=== PATIENT | male | born 1985 | race Caucasian/White ===

== ENCOUNTER 2016-07-27 23:29 | Emergency (ER) | payer OTHER ==
--- NOTE | 2016-07-27 23:43 | PDOC ---
History of Present Illness <Jacob Grijalva - Last Filed: 07/28/16 00:15> - General History Source: Patient Exam Limitations: No Limitations - History of Present Illness Initial Comments: 07/28/16 00:16 The patient is a 31 year old male, with a significant past medical history of gastritis (on Nexium), who presents to the emergency department with throat irritation and a cough for the past 3 days. The patient reports occasionally coughing up white phlegm. The patient reports using his nebulizer once this evening, with minimal relief. The patient reports that he recently got over a stomach virus within in the past couple of days. The patient presents to the ED because he wanted to be evaluated before going on a plane tomorrow. The patient denies any fever, chills, painful swallowing, SOB or chest pain. Allergies: None reported. Past Surgical History: None reported. Social History: Current everyday smoker (5 cigarettes/day). Denies alcohol or drug use. <Jing Chaney - Last Filed: 07/28/16 00:18> - General Stated Complaint: RESPIRATORY Time Seen by Provider: 07/27/16 23:42 Past History - Past Medical History GI Disorders: Yes (ulcers) - Immunization History Immunization Up to Date: Yes - Psycho/Social/Smoking Cessation Hx Anxiety: No Suicidal Ideation: No Smoking Status: Yes Smoking History: Current every day smoker Number of Cigarettes Smoked Daily: 10 'Breaking Loose' booklet given: 02/10/14 Hx Alcohol Use: No <Jacob Grijalva - Last Filed: 07/28/16 00:15> <Jing Chaney - Last Filed: 07/28/16 00:18> - Past Medical History Allergies/Adverse Reactions: Allergies Allergy/AdvReac Type Severity Reaction Status Date / Time No Known Allergies Allergy Verified 07/27/16 23:45 Home Medications: Ambulatory Orders Omeprazole [Prilosec (RX)] 20 mg PO DAILY 12/15/15 Cetirizine HCl [Zyrtec -] 10 mg PO DAILY 07/27/16 Albuterol Sulfate Inhaler - [Ventolin Hfa Inhaler -] 1 - 2 inh PO QID PRN #1 inhaler 07/28/16 Review of Systems - Review of Systems Constitutional: No: Chills, Fever HEENTM: Yes: Throat Swelling. No: Nose Congestion, Throat Pain, Difficulty Swallowing Respiratory: Yes: Cough. No: Shortness of Breath Cardiac (ROS): No: Chest Pain, Edema, Palpitations ABD/GI: No: Diarrhea, Nausea, Vomiting All Other Systems: Reviewed and Negative <Jacob Grijalva - Last Filed: 07/28/16 00:15> *Physical Exam - Vital Signs Last Vital Signs Temp Pulse Resp BP Pulse Ox 98.6 F 84 22 150/85 97 07/27/16 23:44 07/27/16 23:44 07/27/16 23:44 07/27/16 23:44 07/27/16 23:44 - Physical Exam Comments: 07/28/16 00:16 GENERAL: The patient is awake, alert, and fully oriented, in no acute distress. HEAD: Normal with no signs of trauma. EYES: Pupils equal, round and reactive to light, extraocular movements intact, sclera anicteric, conjunctiva clear. LUNGS: Breath sounds equal, clear to auscultation bilaterally. No wheeze/ crackles. HEART: Regular rate and rhythm, normal S1 and S2 without murmur or rub. EXTREMITIES: Normal range of motion, no edema. NEUROLOGICAL: Normal speech, normal gait. PSYCH: Normal mood, normal affect. SKIN: Warm, dry, normal turgor, no rashes or lesions noted. <Jing Chaney - Last Filed: 07/28/16 00:18> Medical Decision Making - Medical Decision Making 07/28/16 00:07 A portion of this note was documented by scribe services under my direction. I have reviewed the details of the note, within reason, and agree with the documentation with the following case summary and management plan written by me. Healthy 31-year-old male with distant history of gastritis on Nexium, atopic dermatitis on Zyrtec presents with 2-3 days of throat irritation with reflux of cough and bronchospasm. No productive cough, no chest pain or shortness of breath, no fevers or chills. No persistent throat pain, no painful swallowing. He presents mostly because he has had a few episodes where the throat irritation leads to coughing, the coughing leads to bronchospasm, he has to get on a plane tomorrow and does not want to be traveling without knowing the diagnosis. no chest pain Vital signs are normal. Well-appearing male standing in the room, speaking full sentences, in no acute distress whatsoever Oropharynx is clear, no erythema or swelling or exudates Lungs are clear Healthy 31-year-old male with throat irritation for 3 days. Pt recently completed gastroenteritis course 3d ago, does not have signs or symptoms of pharyngitis or pneumonia. Symptoms most likely related to post viral gastritis/ GERD, with resulting throat irritation and cough. No clinical signs or symptoms of strep throat, no indication for rapid strep No cardiopulmonary complaints or findings Will add Pepcid course to his Nexium, prescribed albuterol pump for bronchospasm Agrees with plan, understands return criteria. <Jacob Grijalva - Last Filed: 07/28/16 00:15> *DC/Admit/Observation/Transfer <Jacob Grijalva - Last Filed: 07/28/16 00:15> - Attestations Scribe Attestion: 07/28/16 00:16 Documentation prepared by Jing Chaney, acting as medical technologist chemistry for Jacob Grijalva MD. <Jing Chaney - Last Filed: 07/28/16 00:18> Diagnosis at time of Disposition: GERD (gastroesophageal reflux disease) Qualifiers: Esophagitis presence: without esophagitis Qualified Code(s): K21.9 - Gastro- esophageal reflux disease without esophagitis - Discharge Dispostion Disposition: HOME Condition at time of disposition: Stable - Prescriptions Prescriptions: Albuterol Sulfate Inhaler - [Ventolin Hfa Inhaler -] 1 - 2 inh PO QID PRN #1 inhaler PRN Reason: Wheezing - Referrals Referrals: Ana Suh MD [Staff Physician] - - Patient Instructions Printed Discharge Instructions: DI for Gastroesophageal Reflux Disease (GERD) Additional Instructions: Activity as tolerated. Stay hydrated. As discussed, there are no findings suggestive of strep throat or pneumonia. Your symptoms are probably due to throat irritation from reflux, possibly worsened by the recent stomach flu that you had. Continue your medications as previously prescribed by your physician. In addition to Nexium every day, take Pepcid twice daily, this is available over- the-counter. Avoid dairy, spicy or fatty foods, caffeine and alcohol. Do your best to stop smoking. Albuterol as prescribed as needed for bronchospasm. You should follow up with your primary doctor as soon as possible regarding today's emergency department visit. You should also see a pharmacy order entry technician/ academic affairs coordinator regarding your skin complaints. Consider calling Dr. Suh for an appointment. Return to the emergency department for any new or concerning symptoms, particularly persistent or worsening throat pain or swelling, difficulty swallowing, fevers or chills, difficulty breathing, chest pain.
[2016-07-27 23:53] VITALS: BP 150/85; PULSE 84; TEMP 98.6; BMI 43.7
== END 2016-07-28 00:18 | disposition home or self-care (01) ==
LOC: JER 23:29
DX: K21.9 Gastro-esophageal reflux disease without esophagitis (principal); F17.210 Nicotine dependence, cigarettes, uncomplicated
CPT/HCPCS: 99281-25

== ENCOUNTER 2018-05-24 20:01 | Emergency (ER) | payer OTHER ==
[2018-05-24 20:07] VITALS: BP 135/76; PULSE 72; TEMP 98.3; BMI 47.3
--- NOTE | 2018-05-24 20:26 | PDOC ---
History of Present Illness - General Chief Complaint: Back Pain Stated Complaint: BACK PAIN Time Seen by Provider: 05/24/18 20:08 History Source: Patient - History of Present Illness Occurred: reports: last week Pain Location: reports: back Past History - Past Medical History Allergies/Adverse Reactions: Allergies Allergy/AdvReac Type Severity Reaction Status Date / Time No Known Allergies Allergy Verified 05/24/18 20:04 Home Medications: Ambulatory Orders Omeprazole [Prilosec (RX)] 20 mg PO DAILY 12/15/15 Cetirizine HCl [Zyrtec -] 10 mg PO DAILY 07/27/16 Albuterol Sulfate Inhaler - [Ventolin Hfa Inhaler -] 1 - 2 inh PO QID PRN #1 inhaler 07/28/16 Cyclobenzaprine HCl [Flexeril 10 mg] 10 mg PO TID PRN #9 tablet 05/24/18 Tramadol HCl 50 mg PO Q6H #12 tablet MDD 200 mg 05/24/18 COPD: No GI Disorders: Yes (ulcers) - Immunization History Immunization Up to Date: Yes - Suicide/Smoking/Psychosocial Hx Smoking Status: Yes Smoking History: Current every day smoker Number of Cigarettes Smoked Daily: 10 Information on smoking cessation initiated: No 'Breaking Loose' booklet given: 02/10/14 Hx Alcohol Use: No Drug/Substance Use Hx: No Review of Systems - Review of Systems Constitutional: No: Chills, Fever ABD/GI: No: Nausea, Vomiting, Abdominal cramping : No: Burning, Dysuria, Flank Pain, Hematuria Musculoskeletal: Yes: Back Pain Neurological: No: Numbness, Tingling, Weakness *Physical Exam - Vital Signs Last Vital Signs Temp Pulse Resp BP Pulse Ox 98.3 F 72 16 135/76 95 05/24/18 20:04 05/24/18 20:04 05/24/18 20:04 05/24/18 20:04 05/24/18 20:04 - Physical Exam General Appearance: Yes: Appropriately Dressed. No: Apparent Distress HEENT: positive: Normal Voice Neck: positive: Supple Respiratory/Chest: negative: Respiratory Distress Gastrointestinal/Abdominal: positive: Flat. negative: Tender Musculoskeletal: negative: CVA Tenderness, Vertebral Tenderness Extremity: positive: Normal Inspection Integumentary: positive: Dry, Warm Neurologic: positive: Fully Oriented, Alert, Normal Mood/Affect Medical Decision Making - Medical Decision Making 05/24/18 20:27 33 yo M, no sig hx, here w/ mid lower back pain x 1 week, sharp, intermittent, worse w/ certain movement. Denies trauma but works out frequently. Taking motrin w/ little relief. No LE weakness, saddle anesthesia or b/b incontinence. No sxs, n/v/f/c. see exam LBP No red flags at this time -dc w/ pain control -pmd f/u as needed *DC/Admit/Observation/Transfer Diagnosis at time of Disposition: Low back ache Qualifiers: Chronicity: acute Back pain laterality: bilateral Sciatica presence: without sciatica Qualified Code(s): M54.5 - Low back pain - Discharge Dispostion Disposition: HOME Condition at time of disposition: Good - Prescriptions Prescriptions: Cyclobenzaprine HCl [Flexeril 10 mg] 10 mg PO TID PRN #9 tablet PRN Reason: Back Pain Tramadol HCl 50 mg PO Q6H #12 tablet MDD 200 mg - Referrals - Patient Instructions Printed Discharge Instructions: DI for Low Back Pain Additional Instructions: Take 800 of Motrin and Flexeril for pain as needed. If you need something stronger, take tramadol as directed. If symptoms worsen, please follow-up with your doctor - Post Discharge Activity
== END 2018-05-24 21:04 | disposition home or self-care (01) ==
LOC: JERFT 20:01
DX: M54.5 Low back pain (principal); F17.210 Nicotine dependence, cigarettes, uncomplicated
CPT/HCPCS: 99281-25

== ENCOUNTER 2020-02-29 18:01 | Emergency (ER) | payer OTHER ==
[2020-02-29 18:09] VITALS: BP 121/72; PULSE 89; TEMP 99.5; BMI 44.4
--- NOTE | 2020-02-29 18:14 | PDOC ---
Rapid Medical Evaluation Chief Complaint: Laceration Time Seen by Provider: 02/29/20 18:12 Medical Evaluation: Allergies Allergy/AdvReac Type Severity Reaction Status Date / Time No Known Allergies Allergy Verified 05/24/18 20:04 Vital Signs Temp Pulse Resp BP Pulse Ox 99.5 F 89 18 121/72 96 02/29/20 18:07 02/29/20 18:07 02/29/20 18:07 02/29/20 18:07 02/29/20 18:07 02/29/20 18:12 I have performed a brief in-person evaluation of this patient. CC: laceration to left hand; RHD; Td-UTD PE: laceration to left 5th finger. Full flexion and extension of 5th finger. Brisk bleeding noted. Orders: Xray Patient will proceed to ED for further evaluation. Discharge Disposition - Diagnosis Laceration - Discharge Dispostion Condition at time of disposition: Stable - Referrals - Patient Instructions - Post Discharge Activity
--- NOTE | 2020-02-29 18:44 | PDOC ---
Attending Attestation - Resident Resident Name: Jules Kam - ED Attending Attestation I have performed the following: I have examined & evaluated the patient, The case was reviewed & discussed with the resident, I agree w/resident's findings & plan, Exceptions are as noted - HPI HPI: 02/29/20 18:41 34 yo male sustained a laceration to his left fifth finger when a bowl broke in his hand head ncat abd protuberant,nontender extremities brisk bleed form a L shaped full thickness laceration on the PIP of his left 5th finger, sensation intact - Physicial Exam PE: 02/29/20 18:52 head ncat abd protuberant,nontender extremities small arteriole bleeder, there is an L shaped full thickness laceration on the PIP of his left 5th finger, sensation intact neuro axox3,ambulatory 02/29/20 18:52 - Medical Decision Making 02/29/20 19:05 radiograph no acute fracture wound cleansed.laceration closed, tetanus is up tp date 02/29/20 19:21 Discharge - Discharge Information Problems reviewed: Yes Clinical Impression/Diagnosis: Laceration Condition: Stable Disposition: HOME - Follow up/Referral - Patient Discharge Instructions Patient Printed Discharge Instructions: DI for Laceration Repair Additional Instructions: You were seen in the emergency department with a laceration to your left proximal fifth finger. The laceration was repaired with 6 stitches. Home Care: - You should avoid getting the wound wet for at least 24 hours. After 24hrs, you may wash your hand and shower normally. It is OK to use a plain soap and allow water to run over the wound. Do not scrub at the wound, and pat dry after washing. Do not rub with a towel. - After 24hrs you may remove the bandage and leave the wound open to air. - Do not apply any lotions, ointments, creams or other topical medications to the wound - Some redness and swelling is expected after an injury. You may see a small amount of bleeding or pinkish drainage on the bandage when you remove it. This is normal. - You may use acetaminophen (Tylenol) or ibuprofen (Advil, Motrin) as needed for pain. Please follow the directions on the bottle for dosing information. Follow Up: - You will need to be seen in 7 days for suture removal. You can return to the emergency room or see your regular doctor. - Seek immediate medical care if your wound becomes significantly more painful, swollen, red, you have a large amount of thick drainage, you have fevers to 101F or higher, or you have red streaking from the wound. - Post Discharge Activity
--- NOTE | 2020-02-29 19:22 | PDOC ---
History of Present Illness - General Chief Complaint: Laceration Stated Complaint: LT HAND INJURY Time Seen by Provider: 02/29/20 18:12 - History of Present Illness Initial Comments: Pt is a 34yo M with no significant PMH who presents with laceration to his left fifth finger. Pt states that 30 minutes prior to arrival, he was putting away a clean ceramic bowl when the bowl shattered and he accidentally put his hand down into the shards. States that he noticed pulsatile flow from injury with multiple blood soaked gauze pads. States that tetanus is up to date. Denies any paresthesias, weakness. Denies any f/c, chest pain, SOB, headache, syncope, dizziness. PCP: [facility] PMH: denies PSHx: denies Meds: denies All: NKDA Social: former smoker Review of Systems CONSTITUTIONAL:denies fever, chills, diaphoresis, generalized weakness, malaise, loss of appetite HEENT:denies rhinorrhea, nasal congestion, sore throat, ear pain, eye pain, visual Changes CARDIOVASCULAR:denies chest pain, syncope, palpitations, lightheadedness, peripheral edema RESPIRATORY:denies cough, shortness of breath, wheezing GASTROINTESTINAL: denies abdominal pain, nausea, vomiting, diarrhea, constipation, melena, hematochezia GENITOURINARY:denies dysuria, frequency, urgency, hesitancy, hematuria, flank pain MUSCULOSKELETAL:denies myalgia, arthralgia, neck pain, back pain HEMATOLOGIC/IMMUNOLOGIC:denies easy bleeding, easy bruising NEUROLOGIC:denies headache, loss of consciousness, focal weakness or paresthesias, dizziness, unsteady gait, mental status changes, bladder or bowel incontinence SKIN:denies rash, itching, pallor Physical Exam General: awake, alert, fully oriented, in no acute distress, well developed, well nourished Head: normocephalic, atraumatic Eyes: PERRL, anicteric sclera, conjunctiva clear ENT: hearing grossly normal, Moist mucous membranes Lung: equal breath sounds b/l, CTA b/l, no crackles, wheezes; no distress, speaks full sentences Heart: RRR, normal S1, S2, no murmurs, rubs, gallops Abdomen: soft, non tender, normoactive bowel sounds, no guarding, rebound, masses Extremities: normal ROM, no edema, no erythema or tenderness, radial pulses 2+ and symmetric, no clubbing, cyanosis Neuro: CN2-12 grossly intact, moves all extremities, normal speech, normal gait, sensation intact Skin: 1.5cm laceration to proximal left fifth digit; superficial 1cm abrasion to base of thumb. Past History - Medical History Allergies/Adverse Reactions: Allergies Allergy/AdvReac Type Severity Reaction Status Date / Time No Known Allergies Allergy Verified 05/24/18 20:04 Home Medications: Ambulatory Orders Omeprazole [Prilosec (RX)] 20 mg PO DAILY 12/15/15 Cetirizine HCl [Zyrtec -] 10 mg PO DAILY 07/27/16 Albuterol Sulfate Inhaler - [Ventolin Hfa Inhaler -] 1 - 2 inh PO QID PRN #1 inhaler 07/28/16 Cyclobenzaprine HCl [Flexeril 10 mg] 10 mg PO TID PRN #9 tablet 05/24/18 Tramadol HCl 50 mg PO Q6H #12 tablet MDD 200 mg 05/24/18 COPD: No GI Disorders: Yes (ulcers) - Immunization History Immunization Up to Date: Yes - Psycho-Social/Smoking History Smoking Status: Yes Smoking History: Never smoked Have you smoked in the past 12 months: No Number of Cigarettes Smoked Daily: 10 Information on smoking cessation initiated: No 'Breaking Loose' booklet given: 02/10/14 - Substance Abuse Hx (Audit-C & DAST Scrn) How often the patient has a drink containing alcohol: Never Score: In Men: 4 or > Positive; In Women: 3 or > Positive: 0 Screen Result (Pos requires Nsg. Audit-10AR): Negative In the last yr the pt used illegal drug/Rx for NonMed reason: No Score: Yes response is considered Positive: 0 Screen Result (Positive result requires Nsg. DAST-10): Negative *Physical Exam - Vital Signs Last Vital Signs Temp Pulse Resp BP Pulse Ox 99.5 F 89 18 121/72 96 02/29/20 18:07 02/29/20 18:07 02/29/20 18:07 02/29/20 18:07 02/29/20 18:07 Procedures - Laceration/Wound Repair Left Proximal Plantar 5th digit Wound Length: to 2.5 cm Wound Explored: clean, no foreign body present Wound's Depth, Shape: superficial, linear Anesthesia: 1% Lidocaine w/ Epi Amount of Anesthetic (ccs): 2 Wound Repaired With: Sutures Suture Size/Type: 3:0, nylon Number of Sutures: 6 Layer Closure: No Sterile Dressing Applied: Yes Splint Applied: No Sling Applied: No Progress: Pt tolerated procedure well. Hemostasis achieved. Medical Decision Making - Medical Decision Making Pt is a 34yo M with no significant PMH who presents with laceration to proximal left fifth digit. Vital Signs Temp Pulse Resp BP Pulse Ox 99.5 F 89 18 121/72 96 02/29/20 18:07 02/29/20 18:07 02/29/20 18:07 02/29/20 18:07 02/29/20 18:07 DDx: laceration Plan: xray of finger, wound closure Finger xray: no gross acute fracture or dislocation. No gross evidence of radioopaque foreign body. Wound was closed with 6 3.0 nylon sutures. Hemostasis achieved. Bacitracin ointment was gently applied to gauze covering sutures. Abrasion was covered with bacitracin. Neurovascularly intact, cap refill <2sec, sensation intact, Patient well appearing. Patient stable for discharge. Informed of all lab and imaging results. Given follow up instructions and strict return precautions. Patient expressed understanding and agree to plan. Disposition Discharge to home Discharge - Discharge Information Problems reviewed: Yes Clinical Impression/Diagnosis: Laceration Condition: Stable Disposition: HOME - Admission No - Follow up/Referral - Patient Discharge Instructions Patient Printed Discharge Instructions: DI for Laceration Repair Additional Instructions: You were seen in the emergency department with a laceration to your left proximal fifth finger. The laceration was repaired with 6 stitches. Home Care: - You should avoid getting the wound wet for at least 24 hours. After 24hrs, you may wash your hand and shower normally. It is OK to use a plain soap and allow water to run over the wound. Do not scrub at the wound, and pat dry after washing. Do not rub with a towel. - After 24hrs you may remove the bandage and leave the wound open to air. - Do not apply any lotions, ointments, creams or other topical medications to the wound - Some redness and swelling is expected after an injury. You may see a small amount of bleeding or pinkish drainage on the bandage when you remove it. This is normal. - You may use acetaminophen (Tylenol) or ibuprofen (Advil, Motrin) as needed for pain. Please follow the directions on the bottle for dosing information. Follow Up: - You will need to be seen in 7 days for suture removal. You can return to the emergency room or see your regular doctor. - Seek immediate medical care if your wound becomes significantly more painful, swollen, red, you have a large amount of thick drainage, you have fevers to 101F or higher, or you have red streaking from the wound. - Post Discharge Activity
== END 2020-02-29 19:40 | disposition home or self-care (01) ==
LOC: JER 18:01
PROC: 0HQGXZZ Repair Left Hand Skin, External Approach (ICD-10-PCS; principal; 2020-02-29)
DX: S61.217A Laceration without foreign body of left little finger without damage to nail, initial encounter (principal)
CPT/HCPCS: 73140-TC-LT-FY; 99283-25

== ENCOUNTER 2020-07-17 13:27 | Emergency (ER) | payer OTHER | END 2020-07-17 13:34 | disposition home or self-care (01) | LOC: JVIRT 13:27 | DX: Z03.818 Encounter for observation for suspected exposure to other biological agents ruled out (principal) | CPT/HCPCS: C9803; G2012-GT; Q3014-GT; U0003 ==

== ENCOUNTER 2022-04-29 17:10 | Emergency (ER) | payer OTHER ==
[2022-04-29 17:33] VITALS: TEMP 98.3; BMI 43.9
[2022-04-29] MEDS ORDERED: ACETAMINOPHEN 500 MG TABLET (FP) PO ONE (17:50)
[2022-04-29 18:30] LABS: EOS % 2.3 % (0-4.5); HEMATOCRIT 49.3 % (35.4-49); HEMOGLOBIN 16.4 GM/dL (11.7-16.9); LYMPH % 18.8 % (8-40); MCH 27.2 pg (25.7-33.7); MCHC 33.4 g/dl (32.0-35.9); MEAN CELL VOLUME 81.5 fl (80-96); MEAN PLT VOLUME 8.9 fl (7.5-11.1); MONO % 8.2 % (3.8-10.2); NEUT % 69.7 % (42.8-82.8); PLATELET COUNT 362 10^3/uL (134-434); RBC 6.04 M/mm3 (4.00-5.60); RDW 13.9 % (11.9-15.9); WHITE BLOOD COUNT 15.3 K/mm3 (4.0-10.0)
[2022-04-29] MEDS ORDERED: ACETAMINOPHEN 325 MG TABLET (FP) ONE ×2 (18:42)
[2022-04-29 18:52] LABS: CALCIUM 9.6 mg/dL (8.5-10.1)
[2022-04-29 18:53] LABS: ALBUMIN 3.9 g/dl (3.4-5.0); BLOOD UREA NITROGEN 11.3 mg/dL (7-18)
[2022-04-29 18:56] LABS: CREATININE 0.9 mg/dL (0.55-1.3)
[2022-04-29 18:57] LABS: TOT PROT 7.2 g/dl (6.4-8.2)
[2022-04-29 18:58] LABS: BILIRUBIN,TOTAL 0.5 mg/dL (0.2-1)
[2022-04-29 19:35] VITALS: BP 136/85; PULSE 82; RESP 20
== END 2022-04-29 20:26 | disposition home or self-care (01) ==
LOC: JER 17:10
DX: R20.0 Anesthesia of skin (principal); R07.9 Chest pain, unspecified
CPT/HCPCS: 0241U-QW; 36415; 70450-TC; 71046-TC-FY; 80053; 83735; 84484; 85025; 93005; 93010; 99285-25

== ENCOUNTER 2022-12-30 19:14 | Emergency (ER) | payer OTHER ==
[2022-12-30 19:19] VITALS: BP 148/90; PULSE 72; RESP 15; TEMP 98.6; BMI 45.1
== END 2022-12-30 19:45 | disposition home or self-care (01) ==
LOC: JERFT 19:14
DX: K08.89 Other specified disorders of teeth and supporting structures (principal)
CPT/HCPCS: 99283-25